=== PATIENT | male | born 1955 | race Caucasian/White ===

== ENCOUNTER 2016-09-16 09:02 | Emergency (ER) | payer OTHER ==
[~2016-09-16] VITALS: Ht 162.6 cm; Wt 77.1 kg
[~2016-09-16 09:02] MED LIST: AMLODIPINE-BENAZEPRI PO; ATORVASTATIN CA40 MG PO; GOOD SENSE ASPI81 M1 PO; METAMUCIL1 PAC PO; NASACORT A55 MCG/Act NASB; PREDNISONE50 MG PO; PROAIR HFA0.09 MG/Ac PO; TOPROL XL25 MG PO
[2016-09-16 09:05] VITALS: BP 178/98
--- NOTE | 2016-09-16 09:22 | ED GI/GU/ABDOMINAL COMPLAINT ---
History of Present Illness General Chief Complaint: Male Genitourinary Problems Stated Complaint: "RASH TO GENTIALS" Source: patient Exam Limitations: no limitations Vital Signs & Intake/Output Vital Signs & Intake/Output Vital Signs Date Time Temp Pulse Resp B/P B/P Pulse O2 O2 Flow FiO2 Mean Ox Delivery Rate 09/16 904 98.5 87 14 178/98 97 Room Air Allergies Coded Allergies: NO KNOWN ALLERGIES (06/16/13) Reconcile Medications Albuterol Sulfate (Proair Hfa) 0.09 MG/Actuation EMILY 2 PUFF PO 4 TIMES/DAY PRN WHEEZING [AMLODIPINE-BENAZEPRI] 1 TAB PO DAILY HTN (Reported) Aspirin 81 MG TAB.CHEW 1 TAB PO DAILY HEART HEALTH (Reported) Atorvastatin Calcium (Lipitor) 40 MG TABLET 1 TAB PO DAILY CHOLESTEROL ( Reported) Clindamycin HCl (Cleocin HCl) 300 MG CAPSULE 1 CAP PO TID BALANITIS TAKE 300 MG TID for 7 days Metoprolol Succinate (Toprol XL) [address] 1 TAB PO DAILY HTN (Reported) Prednisone 50 MG TABLET 1 TAB PO QDAY PRN SEVERE ALLERGIC RHINITIS Prednisone 20 MG TABLET 40 MG PO DAILY POISION SASHA Take 40 mg daily on days 1-7 Take 20 mg daily on days 8-14 Psyllium Hydrophylic Muciloid (Metamucil Packet) 3.4 GM POWD.PACK 1 PAC PO DAILY CONSTIPATION (Reported) Triamcinolone Acetonide (Nasacort Aq) 55 MCG/Actuation SPR 1 INH NASB BID ALLERGIC RHINITIS Triage Note: 60 Y/O MALE C/O ITCHY RASH TO GENTIALS X 2-3 DAYS. HAS POISON SASHA BUT DOESNT THINK RASH IS FROM THAT. REQUESTING MALE PROVIDER IF AVAILABLE. Triage Nurses Notes Reviewed? yes HPI: 60 yo M PMH HTN presenting with rash. Rash to bilateral forearms for the last 4- 5 days, vesicular, pruritic, patient was working outside, had contact with poision Sasha, other individuals working in area with similar lesions. 2-3 days ago developed similar lesion on right side of penile shaft, pruritic, no purulen drainage, spreading erythema and swelling since that time, minimal pain. Denies fevers, chills, chest pain, SOB, abdominal Sx, urinary Sx, penile discharge. (ALEX ORDOÑEZ,JOSE ANTONIO) Past History Travel History Traveled to [place] past 21 day No Medical History Any Pertinent Medical History? 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 Yes (JOSE ANTONIO JOHNSON MD) Review of Systems Review of Systems Constitutional: Reports: no symptoms. EENTM: Reports: no symptoms. Respiratory: Reports: no symptoms. Cardiovascular: Reports: no symptoms. GI: Reports: no symptoms. Genitourinary: Reports: see HPI. Denies: dysuria, frequency, hematuria, pain, urgency. Musculoskeletal: Reports: no symptoms. Skin: Reports: see HPI, lesions. Neurological/Psychological: Reports: no symptoms. Hematologic/Endocrine: Reports: no symptoms. Immunologic/Allergic: Reports: no symptoms. All Other Systems: Reviewed and Negative (JOSE ANTONIO JOHNSON MD) Physical Exam Physical Exam General Appearance: well developed/nourished, no apparent distress, alert Head: normal appearance Neck: normal inspection, full range of motion Respiratory: normal breath sounds, no respiratory distress Cardiovascular: regular rate/rhythm, normal peripheral pulses Gastrointestinal: soft, non-tender Male Genitals: See Below Comments: Skin: Mildly erythematous vesicular lesions to bilateral volar forearms : 1-2 cm linear vesicular erythematous lesion to right lateral penile shaft with associated edema, erythema/edema of right lateral scrotum and distal penile shaft/head/foreskin, foreskin easily retractible without pain, no lesions at urethral meatus Core Measures ACS in differential dx? No Severe Sepsis Present: No Septic Shock Present: No (JOSE ANTONIO JOHNSON MD) Progress Differential Diagnosis: STI, Poision sasha, balanitis Plan of Care: Current Medications Sig/Laura Start time Last Medication Dose Stop Time Status Admin Clindamycin 300 MG ONCE ONE 09/16 999 UNVr (Cleocin 150MG Cap) 09/16 1001 Prednisone 40 MG ONCE ONE 09/16 999 UNVr 09/16 1001 Physician MDM: 60 yo M presenting with skin lesions, penile lesion and swelling. VSS, afebrile, exam as above. DDx: Poision Sasha, Balanitis, Cellulitis, less likely HSV or other STI, low concern for necrotiizing fascitis. Given probable poision sasha with genital involvement, will treat with 14 day steroid taper, 40 mg prednisone given in ED. Given significant erythema/edema probable associated cellulitis/balanitis, we'll treat with clindamycin, first dose given in ED. Given patient well-appearing in stable with low concern for paraphimosis or necrotizing fasciitis, discharged with strict return precautions, prednisone taper, clindamycin prescription, plan to follow-up with PMD in the next 2-3 days for further evaluation. The plan of care was discussed with the patient who expressed agreement and understanding. (ALEX ORDOÑEZ,JOSE ANTONIO) Initial ED EKG: none (ALEX ORDOÑEZ,JOSE ANTONIO) Departure Departure Disposition: HOME OR SELF CARE Condition: Stable Clinical Impression Primary Impression: Poison sasha Secondary Impressions: Balanitis Referrals: Min ORELLANA MD (PCP/Family) Additional Instructions: Take prednisone 40 mg daily for days 1-7, then take prednisone 20 mg daily for days 8-14. Take clindamycin 3 times daily for 7 days. Follow up with a primary care physician in the next 2-3 days. Return to the ED for any new, worsening, or concerning symptoms. Departure Forms: Customer Survey General Discharge Information Prescriptions: Current Visit Scripts Prednisone 40 MG PO DAILY #28 TAB Take 40 mg daily on days 1-7 Take 20 mg daily on days 8-14 Clindamycin HCl (Cleocin HCl) 1 CAP PO TID #21 CAP TAKE 300 MG TID for 7 days (JOSE ANTONIO JOHNSON MD) PA/MAT PACKER Co-Sign Statement Statement: ED Attending supervision documentation- [] I saw and evaluated the patient. I have also reviewed all the pertinent lab results and diagnostic results. I agree with the findings and the plan of care as documented in the PA's/MAT PACKER's documentation. [x I have reviewed the ED Record and agree with the PA's/MAT PACKER's documentation. [] Additions or exceptions (if any) to the PAs/MAT PACKER's note and plan are summarized below: [] (BARBARA VILLALOBOS DO
[2016-09-16] MEDS ORDERED: PREDNISONE20 M1 PO (09:48)
[2016-09-16] MEDS ORDERED: CLEOCIN HCL300 M1 PO (09:48)
== END 2016-09-16 10:09 ==
LOC: ERH 09:02
DX: L23.7 Allergic contact dermatitis due to plants, except food (principal); N48.1 Balanitis

== ENCOUNTER 2017-06-07 09:36 | Emergency (ER) | payer OTHER ==
[~2017-06-07] VITALS: Ht 162.6 cm; Wt 77.1 kg
[~2017-06-07 09:36] MED LIST changes: +ASPIRIN81 M4 PO; +CLEOCIN HCL300 M1 PO; -GOOD SENSE ASPI81 M1 PO; +PREDNISONE20 M1 PO
--- NOTE | 2017-06-07 11:21 | ED GI/GU/ABDOMINAL COMPLAINT ---
History of Present Illness General Chief Complaint: Abdominal Pain/Flank Pain Stated Complaint: BIBA ABD PAIN Source: patient Exam Limitations: no limitations Vital Signs & Intake/Output Vital Signs & Intake/Output Vital Signs Date Time Temp Pulse Resp B/P B/P Pulse O2 O2 Flow FiO2 Mean Ox Delivery Rate 06/07 1634 99.0 99 18 148/80 96 Room Air 06/07 1445 99.5 74 18 160/68 97 Room Air 06/07 1140 98.6 90 18 139/72 97 Room Air 06/07 0943 97.1 88 18 139/77 98 Room Air Allergies Coded Allergies: NO KNOWN ALLERGIES (06/16/13) Reconcile Medications Amlodipine Besylate/Benazepril (Amlodipine-Benazepril 5-10 MG) 5 MG-10 MG CAPSULE 1 CAP PO DAILY HEART (Reported) Aspirin (Aspirin*) 81 MG TAB.CHEW 1 TAB PO DAILY HEART HEALTH (Reported) Metoprolol Succinate 25 MG TAB 1 TAB PO DAILY HEART (Reported) Ondansetron (Zofran Odt) 4 MG TAB.RAPDIS 1 TAB SL TID nausea Oxycodone HCl/Acetaminophen (Percocet 5-325 MG Tablet) 5 MG-325 MG TABLET 1-2 TAB PO BID pain Triage Note: PT STATES THAT HE WOKE UP AT 2 AM WITH MID ABD PAIN THAT STARTED TO INCREASE, STATES THAT PAIN WAS 10/10 AND CONSTANT AND STARTED MID EPIGASTRIC AND THEN MOVED INTO DIFFUSE ABD AND FELT" LIKE IT EXPLODED LIKE A SPARKLER AND NOW PAIN FEELS BETTER". PT STATES THAT HE WAS SOB AT THE TIME , PALE SWEATING . PER EMS PT DROVE INTO THERE DRIVEWAY BEEPING HIS HORN, THEY STATED THAT PT WAS PALE, AND SWEATY. PT TOLD THEM THAT HE WAS HAVING SEVERE ABD PAIN AND NAUSEA. ON DRIVE HERE PT STARTED TO FEEL BETTER AND PAIN DECREASED TO NOTHING. PT STATES THAT HE DID HAVE A COUPLE OF EPISODES OF DIARHEA AT HOME. DENIES CP/SOB AT THIS TIME Triage Nurses Notes Reviewed? yes Onset: Abrupt Duration: getting worse, MONTHS Timing: recent history Quality/Severity: moderate, sharpness, stabbing Radiation: no radiation HPI: 61-year-old male has been experiencing abdominal pain issues for months comes in with worsening pain that occurred today. Patient reports that today the pain was epigastric and shot down to his lower abdomen. Sharp. Some associated dry heaving. Denies any changes in bowel movement. Denies any fever. Some mild associated shortness of breath. Patient reports he had previous surgery and has left UPJ but denies any other abdominal surgeries. He comes in now for further evaluation. Past History Travel History Traveled to [place] past 21 day No Medical History Any Pertinent Medical History? 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 No Review of Systems Review of Systems Constitutional: Reports: no symptoms. EENTM: Reports: no symptoms. Respiratory: Reports: no symptoms. Cardiovascular: Reports: no symptoms. GI: Reports: see HPI. Genitourinary: Reports: see HPI. Musculoskeletal: Reports: no symptoms. Skin: Reports: no symptoms. Neurological/Psychological: Reports: no symptoms. Hematologic/Endocrine: Reports: no symptoms. Immunologic/Allergic: Reports: no symptoms. All Other Systems: Reviewed and Negative Physical Exam Physical Exam General Appearance: well developed/nourished, alert Head: atraumatic, normal appearance Eyes: Bilateral: normal appearance, EOMI. Ears, Nose, Throat, Mouth: hearing grossly normal, moist mucous membrane Neck: normal inspection Respiratory: normal breath sounds, no respiratory distress Cardiovascular: regular rate/rhythm Gastrointestinal: soft, tenderness Back: normal inspection Extremities: normal range of motion Neurologic/Psych: awake, alert, oriented x 3, normal gait, normal mood/affect Skin: intact, normal color Core Measures ACS in differential dx? No Sepsis Present: No Sepsis Focused Exam Completed? No Progress Differential Diagnosis: AMI, appendicitis, bowel obstruction, cholecystitis, diverticulitis, gastritis, hepatitis, hernia, ischemic bowel, pancreatitis, peptic ulcer, PUD/GERD, perforated viscous, pyelonephritis, SBO, testicular torsion, ureterolithiasis, urinary retention, urethritis, UTI/pyelo Plan of Care: Orders Procedure Date/time Status Clear Liquid Diet 06/07 D Active TROPONIN LEVEL 06/07 1533 Complete EKG 06/07 1533 Active Add-on Test (ER Only) 06/07 1218 Active LIPASE 06/07 1138 Complete URINALYSIS 06/07 1120 Complete TROPONIN LEVEL 06/07 1120 Complete LACTIC ACID 06/07 1120 Complete COMPREHENSIVE METABOLIC PANEL 06/07 112 Complete CBC WITHOUT DIFFERENTIAL 06/07 112 Complete EKG 06/07 112 Active Laboratory Tests 06/07/17 1604: Troponin I < 0.01 06/07/17 1420: Lactic Acid Cancelled 06/07/17 1212: Urine Color YEL, Urine Clarity CLEAR, Urine pH 6.0, Ur Specific [place] 1.025, Urine Protein NEG, Urine Ketones 15 H, Urine Nitrite NEG, Urine Bilirubin NEG, Urine Urobilinogen 0.2, Ur Leukocyte Esterase NEG, Ur Microscopic EXAM NOT REQUIRED, Urine Hemoglobin NEG, Urine Glucose NEG 06/07/17 1138: Anion Gap 14, Estimated GFR > 60, BUN/Creatinine Ratio 22.5, Glucose 116 H, Lactic Acid 1.5, Calcium 9.9, Total Bilirubin 0.8, AST 21, ALT 36, Alkaline Phosphatase 53, Troponin I < 0.01, Total Protein 7.1, Albumin 4.4, Globulin 2.7, Albumin/Globulin Ratio 1.6, Lipase 73, CBC w Diff MAN DIFF ORDERED, RBC 5.41, MCV 86.7, MCH 29.9, MCHC 34.5, RDW 13.4, MPV 7.8, Gran % 86.7 H, Lymphocytes % 5.6 L, Monocytes % 7.7, Eosinophils % 0, Basophils % 0, Absolute Granulocytes 8.9 H, Segmented Neutrophils 71, Band Neutrophils 15 H, Absolute Lymphocytes 0.6 L, Lymphocytes 7 L, Monocytes 7, Absolute Monocytes 0.8 H, Absolute Eosinophils 0, Absolute Basophils 0, Platelet Estimate ADEQUATE, Normocytic RBCs VERIFIED, Normochromic RBCs VERIFIED, Fld Total RBCs Counted 100 Diagnostic Imaging: Viewed by Me: Radiology Read, CT Scan. Discussed w/RAD: Radiology Read, CT Scan. Radiology Impression: PATIENT: CARISSA LOPEZ PRESENT AGE: 61 PATIENT ACCOUNT NO: [id number] : 53 LOCATION: [facility] ORDERING PHYSICIAN: Aaron GODOY SERVICE DATE: 06/07/17 EXAM TYPE: CAT - CT ABD & PELVIS W IV CONTRAST EXAMINATION: CT ABDOMEN AND PELVIS WITH CONTRAST CLINICAL INFORMATION: Lower abdominal pain. COMPARISON: CT abdomen and pelvis 05/02/2014. TECHNIQUE: Multidetector volumetric imaging was performed of the abdomen and pelvis following IV administration of 95 mL of Optiray 320 intravenous contrast. Sagittal and coronal reformatted images were obtained on the technologist's workstation. DLP: 388 mGy-cm FINDINGS: LUNG BASES: The visualized lung bases are unremarkable. LIVER, GALLBLADDER, AND BILIARY TREE: The liver is normal in size, shape, and attenuation. No focal hepatic lesion or biliary ductal dilatation is present. The gallbladder is unremarkable with no evidence of radiopaque gallstones, gallbladder wall thickening, or obvious pericholecystic inflammatory changes. PANCREAS: Unremarkable. SPLEEN: Unremarkable. ADRENAL GLANDS: Unremarkable. KIDNEYS AND URETERS: Bilateral nephrograms are symmetric. There is asymmetric left-sided hydronephrosis with abrupt transition at the left ureteropelvic junction, unchanged from prior exam and likely representing a chronic UPJ obstruction. No suspicious renal lesion. No renal or ureteral calculi. BLADDER: Unremarkable. GASTROINTESTINAL TRACT: Bowel gas pattern is nonobstructive. There is borderline dilated small bowel in the midabdomen with suggestion of associated mesenteric edema and mild vessel honeycombing. No significant mural thickening of these bowel loops. No discrete transition point delineated. No evidence of acute colonic inflammation. The appendix is not discretely visualized. ABDOMINAL WALL: No significant hernia is appreciated. LYMPH NODES: Subcentimeter abdominal and pelvic lymph nodes without bulky adenopathy. VASCULAR: Scattered atherosclerotic calcification including coronary artery calcification. PELVIC VISCERA: No free pelvic fluid. Borderline prostatomegaly. Seminal vesicles are unremarkable. Vasectomy clips. OSSEOUS STRUCTURES: No acute osseous abnormalities. Multilevel degenerative changes of the spine, most conspicuous at L4-L5 with an inferior endplate L4 Schmorl's node. IMPRESSION: 1. Borderline distended small bowel loops (relatively long segment) in the central abdomen with suggestion of mild associated mesenteric edema and vessel honeycombing. No discrete transition point demonstrated. Findings are suspicious for local enteritis. No pneumoperitoneum. 2. No acute colonic pathology. 3. Unchanged left hydronephrosis extending from the ureteropelvic junction, suggesting chronic mild UPJ obstruction. DICTATED BY: Fortino Baez MD DATE/TIME DICTATED:06/07/171338 CASTING INSPECTOR:PAMELA DATE/TIME TRANSCRIBED:06/07/171338 CONFIDENTIAL, DO NOT COPY WITHOUT APPROPRIATE AUTHORIZATION. <Electronically signed in Other Vendor System> SIGNED BY: Fortino Baez MD 06/07/17 8344, PATIENT: CARISSA LOPEZ PRESENT AGE: 61 PATIENT ACCOUNT NO: [id number] : 53 LOCATION: [facility] ORDERING PHYSICIAN: Aaron GODOY SERVICE DATE: 06/07/17 EXAM TYPE : RAD - XRY-CHEST XRAY, TWO VIEWS EXAMINATION: XR CHEST CLINICAL INFORMATION: SOB. COMPARISON: Chest 12/12/2013 TECHNIQUE: 2 views of the chest were obtained. FINDINGS: Both lungs are fairly well-expanded and clear of acute process. The heart size and pulmonary vascularity is normal. No gross bony abnormality seen. IMPRESSION: Unremarkable chest examination. DICTATED BY: Peewee Diamond MD DATE/ TIME DICTATED:06/07/171347 CASTING INSPECTOR:PAMELA DATE/TIME TRANSCRIBED: 06/07/171347 CONFIDENTIAL, DO NOT COPY WITHOUT APPROPRIATE AUTHORIZATION. < Electronically signed in Other Vendor System> SIGNED BY: Peewee Diamond MD [id number] Initial ED EKG: normal sinus rhythm, rate Repeat EKG: unchanged Departure Departure Disposition: HOME OR SELF CARE Condition: Stable Clinical Impression Primary Impression: Abdominal pain Referrals: Patient Has No Primary Care Dr (PCP/Family) Additional Instructions: Return if any concerns worsening symptoms. Take Percocet and Zofran as prescribed. Follow-up with your primary care doctor. Please go over all results of today's visit with your primary care doctor. Contact your primary care doctor to let them know you were here in the emergency room. There may be nonspecific findings which may not be related to your visit today here in the emergency room but may require further evaluation and chronic monitoring by your primary care doctor. If you had a laceration today the chance of foreign body always remains. You should follow-up with your primary care doctor for recheck in 3-5 days for a wound check. If you had an x-ray done there is a chance that a fracture could have been missed on initial read and you should follow-up with your primary care doctor for repeat x-rays if symptoms persist. If your blood pressure was elevated here in the emergency room please have rechecked by hyour primary care doctor within the next 48. If you were prescribed a narcotic here in the emergency room or any type of controlled substances you're not allowed to drive while taking this medication or operate any type of heavy machinery. Narcotics can make you feel lightheaded dizziness nausea and can cause constipation. 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 Thank you for choosing [facility] emergency room. Please return to the emergency room immediately if you have any other concerns worsening of symptoms. Departure Forms: Customer Survey General Discharge Information Prescriptions: Current Visit Scripts Oxycodone HCl/Acetaminophen (Percocet 5-325 MG Tablet) 1-2 TAB PO BID #10 TAB Ondansetron (Zofran Odt) 1 TAB SL TID #10 TAB Comments 06/07/2017 6:11:31 PM After being reevaluated multiple times here in the emergency room he feels better. He is tolerating oral liquids. His abdominal pain feels significantly better. Results discussed with the patient. Second troponin negative. Patient was reevaluated at least 3 times here in the emergency room. He will follow-up with his PCP. Return if any other concerns. he Feels ready to be discharged.
[2017-06-07 11:46] LABS: ABSOLUTE BASOPHIL COUNT 0 /CUMM (0.0-0.2); ABSOLUTE EOSINOPHIL COUNT 0 /CUMM (0.0-0.7); ABSOLUTE GRANULOCYTE CT 8.9 /CUMM (1.4-6.5); ABSOLUTE LYMPH COUNT 0.6 /CUMM (1.2-3.4); ABSOLUTE MONOCYTE COUNT 0.8 /CUMM (0.10-0.60); BASOPHIL % 0 % (0.0-2.0); EOSINOPHIL % 0 % (0-5); HEMATOCRIT 46.9 % (42-52); MEAN CORPUSCULAR HGB 29.9 PG (27.0-31.0); MEAN CORPUSCULAR HGB CONC 34.5 G/DL (33.0-37.0); MEAN CORPUSCULAR VOLUME 86.7 FL (80.0-94.0); MEAN PLATELET VOLUME 7.8 FL (7.4-10.4); PLATELET COUNT 248 /CUMM (130-400); RBC DISTRIBUTION WIDTH 13.4 % (11.5-14.5); RED BLOOD CELL CT 5.41 /CUMM (4.70-6.10); WHITE BLOOD CELL COUNT 10.2 /CUMM (4.8-10.8)
[2017-06-07 11:47] LABS: GRANULOCYTE % 86.7 % (42.2-75.2)
[2017-06-07] MEDS ORDERED: AMLODIPINE-BEN1 EAC3 PO (11:53)
[2017-06-07] MEDS ORDERED: METOPROLOL SUCC25 M1 PO (11:53)
--- NOTE | 2017-06-07 13:53 | RADIOLOGY REPORT ---
EXAMINATION: XR CHEST CLINICAL INFORMATION: SOB. COMPARISON: Chest 12/12/2013 TECHNIQUE: 2 views of the chest were obtained. FINDINGS: Both lungs are fairly well-expanded and clear of acute process. The heart size and pulmonary vascularity is normal. No gross bony abnormality seen. IMPRESSION: Unremarkable chest examination.
--- NOTE | 2017-06-07 13:54 | CT SCAN REPORT ---
EXAMINATION: CT ABDOMEN AND PELVIS WITH CONTRAST CLINICAL INFORMATION: Lower abdominal pain. COMPARISON: CT abdomen and pelvis 05/02/2014. TECHNIQUE: Multidetector volumetric imaging was performed of the abdomen and pelvis following IV administration of 95 mL of Optiray 320 intravenous contrast. Sagittal and coronal reformatted images were obtained on the technologist's workstation. DLP: 388 mGy-cm FINDINGS: LUNG BASES: The visualized lung bases are unremarkable. LIVER, GALLBLADDER, AND BILIARY TREE: The liver is normal in size, shape, and attenuation. No focal hepatic lesion or biliary ductal dilatation is present. The gallbladder is unremarkable with no evidence of radiopaque gallstones, gallbladder wall thickening, or obvious pericholecystic inflammatory changes. PANCREAS: Unremarkable. SPLEEN: Unremarkable. ADRENAL GLANDS: Unremarkable. KIDNEYS AND URETERS: Bilateral nephrograms are symmetric. There is asymmetric left-sided hydronephrosis with abrupt transition at the left ureteropelvic junction, unchanged from prior exam and likely representing a chronic UPJ obstruction. No suspicious renal lesion. No renal or ureteral calculi. BLADDER: Unremarkable. GASTROINTESTINAL TRACT: Bowel gas pattern is nonobstructive. There is borderline dilated small bowel in the midabdomen with suggestion of associated mesenteric edema and mild vessel honeycombing. No significant mural thickening of these bowel loops. No discrete transition point delineated. No evidence of acute colonic inflammation. The appendix is not discretely visualized. ABDOMINAL WALL: No significant hernia is appreciated. LYMPH NODES: Subcentimeter abdominal and pelvic lymph nodes without bulky adenopathy. VASCULAR: Scattered atherosclerotic calcification including coronary artery calcification. PELVIC VISCERA: No free pelvic fluid. Borderline prostatomegaly. Seminal vesicles are unremarkable. Vasectomy clips. OSSEOUS STRUCTURES: No acute osseous abnormalities. Multilevel degenerative changes of the spine, most conspicuous at L4-L5 with an inferior endplate L4 Schmorl's node. IMPRESSION: 1. Borderline distended small bowel loops (relatively long segment) in the central abdomen with suggestion of mild associated mesenteric edema and vessel honeycombing. No discrete transition point demonstrated. Findings are suspicious for local enteritis. No pneumoperitoneum. 2. No acute colonic pathology. 3. Unchanged left hydronephrosis extending from the ureteropelvic junction, suggesting chronic mild UPJ obstruction.
[2017-06-07 16:34] VITALS: BP 148/80
[2017-06-07] MEDS ORDERED: ZOFRAN ODT4 M1 SL (17:46)
[2017-06-07] MEDS ORDERED: PERCOCET 5-3251 EACH PO (17:46)
== END 2017-06-07 17:59 ==
LOC: ERH 09:36
PROVIDERS: Physician Assistant Medical
DX: R10.9 Unspecified abdominal pain (principal)
CPT/HCPCS: 71046; 74177; 81003; 93005; 93010; 96374; 96375; J0131; J2405

== ENCOUNTER 2017-09-13 08:04 | Observation (INO) | payer OTHER ==
[~2017-09-13] VITALS: Ht 162.6 cm; Wt 70.3 kg
[~2017-09-13 08:04] MED LIST changes: +AMLODIPINE-BEN1 EAC3 PO; +METOPROLOL SUCC25 M1 PO; +PERCOCET 5-3251 EACH PO; +ZOFRAN ODT4 M1 SL
--- NOTE | 2017-09-13 08:31 | ED CARDIAC/CP/PALPITATIONS ---
History of Present Illness General Chief Complaint: Chest Pain Stated Complaint: CP Source: patient, family Exam Limitations: no limitations Vital Signs & Intake/Output Vital Signs & Intake/Output Vital Signs Date Time Temp Pulse Resp B/P B/P Pulse O2 O2 Flow FiO2 Mean Ox Delivery Rate 09/14 0646 97.8 73 20 150/92 20 Room Air 09/13 2142 97.9 69 20 168/98 97 Room Air 09/13 2124 70 168/98 09/13 1919 97.8 78 144/86 09/13 1523 98.0 76 16 150/84 99 Room Air 09/13 1403 97.8 78 18 144/86 98 Room Air 09/13 1123 97.6 64 18 154/92 99 Room Air 09/13 0942 68 16 160/94 96 Room Air 09/13 0842 Room Air ED Intake and Output 09/14 0000 09/13 1200 Intake Total 0 Output Total 0 Balance 0 Intake, Oral 0 Output, Urine 0 Patient 155 lb 170 lb Weight Weight Reported by Patient Measurement Method Allergies Coded Allergies: NO KNOWN ALLERGIES (06/16/13) Reconcile Medications Amlodipine Besylate/Benazepril (Amlodipine-Benazepril 5-10 MG) 5 MG-10 MG CAPSULE 1 CAP PO DAILY HEART (Reported) Aspirin (Aspirin*) 81 MG TAB.CHEW 1 TAB PO DAILY HEART HEALTH (Reported) Metoprolol Succinate 25 MG TAB 1 TAB PO DAILY HEART (Reported) Triage Note: PT C/O CHEST PRESSURE/PAIN SINCE LAST NIGHT ASSOCIATED WITH EXERTION. PT STATES ALSO SOB WITH PINS AND NEEDLES DOWN THE BACK OF HIS HEAD AND PRESSURE INSIDE OF BOTH ARMS. HX OF PR 13 YEARS AGO WITH STENT Triage Nurses Notes Reviewed? yes Onset: Gradual Duration: minute(s): Timing: yesterday Quality/Severity: mild, pressure Location: substernal Radiation: arms Activities at Onset: activity Aspirin Today: 81 mg x 1 HPI: 61yo male with hx of CAD s/p PR with 2 stents 13 years ago, HTN, hyperlipidemia presents to ED complaining of chest pressure yesterday while mowing the lawn. Patient states that he was doing yardwork and then began mowing the lawn when he had gradual onset of mild substernal chest pressure radiating towards both arms. Patient felt shortness of breath and presyncope at this time. Patient states that he sat down to rest and his symptoms gradually improved over a few minutes. He has had no further chest pain however was not able to continue any exertional activity due to fatigue. Patient reports exertional fatigue for the past several months however yesterday was his first occurrence of chest pressure. Patient states that his symptoms are similar to his previous PR 13 years ago. Patient sees fuel management handler, Dr. Quezada, twice a year. He takes ASA 81mg daily. Patient reports erectile dysfunction. He states that for the past 2 months he has discontinued blood pressure and cholesterol medications as he thought this was affecting his ED. patient reports intermittent numbness to bilateral palms. Patient denies syncope. (Rosie Currie) Past History Travel History Traveled to [place] past 21 day No Medical History Any Pertinent Medical History? 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 No (Rosie Currie) Review of Systems Review of Systems Constitutional: Reports: see HPI. EENTM: Reports: no symptoms. Respiratory: Reports: see HPI. Cardiovascular: Reports: see HPI. GI: Reports: no symptoms. Genitourinary: Reports: see HPI. Musculoskeletal: Reports: no symptoms. Skin: Reports: no symptoms. Neurological/Psychological: Reports: no symptoms. Hematologic/Endocrine: Reports: no symptoms. Immunologic/Allergic: Reports: no symptoms. All Other Systems: Reviewed and Negative (Rosie Currie) Physical Exam Physical Exam General Appearance: well developed/nourished, no apparent distress, alert, awake Head: atraumatic, normal appearance Eyes: Bilateral: normal appearance. Ears, Nose, Throat: hearing grossly normal Neck: normal inspection, supple, full range of motion Respiratory: normal breath sounds, chest non-tender, no respiratory distress, lungs clear Cardiovascular: regular rate/rhythm, normal peripheral pulses Peripheral Pulses: 2+ radial (R), 2+ radial (L) Gastrointestinal: normal bowel sounds, soft, non-tender, no organomegaly Back: normal inspection, normal range of motion Extremities: normal inspection, normal range of motion Neurologic/Psych: awake, alert, oriented x 3 Skin: intact, normal color, warm/dry Core Measures ACS in differential dx? Yes CVA/TIA Diagnosis No Sepsis Present: No Sepsis Focused Exam Completed? No (Samantha GODOY,Rosie Nguyen) Progress Differential Diagnosis: AMI, atrial fibrillation, CHF/pulm edema, costochondritis, musculoskeletal pain, myocarditis, pericarditis, pneumonia, pulmonary embolism, unstable angina, V-fib/V-Tach Plan of Care: Orders Procedure Date/time Status Nothing by Mouth 09/14 B Active Heart Healthy Diet 09/13 D Complete ECHOCARDIOGRAM 09/13 2159 Active TROPONIN LEVEL 09/13 1800 Complete EKG 09/13 1800 Active Vital Signs 09/13 1602 Active Teach/Educate 09/13 1602 Active Pain Treatment and Response 09/13 1602 Active Nutritional Intake, Monitor 09/13 1602 Active Isolation 09/13 1602 Active Intake & Output 09/13 1602 Active Patient Care Conference 09/13 1602 Active Activity/Ambulation 09/13 1602 Active Pathway - chart 09/13 1536 Active House Staff 09/13 1536 Active Code Status 09/13 1536 Active Patient Data 09/[address] in observation 09/13 1240 Active ED Holding Orders 09/13 1217 Active Code Status 09/13 1217 Complete TROPONIN LEVEL 09/13 1130 Complete EKG 09/13 1130 Active Add-on Test (ER Only) 09/13 0850 Active Intake & Output 09/13 0838 Active PARTIAL THROMBOPLASTIN TIME 09/13 0829 Complete PROTHROMBIN TIME 09/13 0829 Complete Current Medications Sig/Laura Start time Last Medication Dose Stop Time Status Admin Amlodipine Besylate 5 MG DAILY 09/14 899 AC (Norvasc) Aspirin 81 MG DAILY 09/14 899 AC (Aspirin) Enoxaparin Sodium 40 MG DAILY 09/14 899 AC (Lovenox) Metoprolol Tartrate 12.5 MG BID 09/13 2100 AC 09/13 (Lopressor) 2124 Lisinopril 10 MG DAILY 09/13 1535 AC 09/13 (Prinivil) 1919 Laboratory Tests 09/13/17 1755: Troponin I 0.06 09/13/17 1203: Troponin I 0.09 Awaiting cardiology page. Patient's blood pressure has been reduced reasonably without need for antihypertensives here in the emergency department. He has no active chest pain at this time. Initial troponin enzyme is within normal limits, EKG is stable. Spoke with Dr. Hdez regarding this patient, he agrees with the plan for hospital stay, he believes the patient will require a stress test while here. Case managment/Dr. Syed recommend observation. Dr. Rodas with Dr. Tellez regarding this patient's telemetry observation. Diagnostic Imaging: Viewed by Me: Radiology Read. Discussed w/RAD: Radiology Read. Radiology Impression: PATIENT: CARISSA LOPEZ PRESENT AGE: 61 PATIENT ACCOUNT NO: [id number] : 53 LOCATION: [facility] ORDERING PHYSICIAN: Rosie GODOY SERVICE DATE: 09/13/17 EXAM TYPE: RAD - XRY-CHEST XRAY, TWO VIEWS EXAMINATION: XR CHEST CLINICAL INFORMATION: Chest pain. COMPARISON: Prior chest radiographs dated 06/07/2017 and 12/12/2013. TECHNIQUE: Frontal and lateral views of the chest were obtained. FINDINGS: The heart, great vessels, pulmonary vasculature and mediastinum are normal. The lungs show no focal infiltrate, effusion or pneumothorax. There is no acute osseous abnormality. An ovoid radiopaque foreign body is again seen in the upper right thoracic soft tissues. IMPRESSION: No active cardiopulmonary disease. DICTATED BY: Adonay Ibanez MD DATE/TIME DICTATED:09/13/17912 TAX COMPLIANCE AGENT: PAMELA DATE/TIME TRANSCRIBED:09/13/17912 CONFIDENTIAL, DO NOT COPY WITHOUT APPROPRIATE AUTHORIZATION. <Electronically signed in Other Vendor System> SIGNED BY: Adonay Ibanez MD 09/13/17917 Initial ED EKG: sinus rhythm @67bpm, incomplete RBBB, LVH, nonspecific ST changes Prior EKG: unchanged (06/07/17) (Samantha GODOY,Rosie Nguyen) Departure Departure Disposition: STILL A PATIENT Condition: Stable Clinical Impression Primary Impression: Chest pain Qualifiers: Chest pain type: unspecified Qualified Code: R07.9 - Chest pain, unspecified Referrals: Patient Has No Primary Care Dr (PCP/Family) Departure Forms: Customer Survey General Discharge Information Observation Note Spoke With: Cirilo Tellez MD Physician Advisor Notified: DANIAL ORDOÑEZ,ERASMO Ortiz Place Patient In: Non-ED OBS Care Area Rationale for Observation: My rational for observation is as follows [patient with exertional chest pain and significant caridac history requiring telemetry monitoring, cardiology consult, repeat EKGs, repeat troponins, stress test, premature discharge medically unsafe]. (Samantha GODOY,Rosie Nguyen) Departure Time of Disposition: 1243 PA/TYPESETTING MACHINE OPERATOR/TENDER Co-Sign Statement Statement: ED Attending supervision documentation- [] I saw and evaluated the patient. I have also reviewed all the pertinent lab results and diagnostic results. I agree with the findings and the plan of care as documented in the PA's/TYPESETTING MACHINE OPERATOR/TENDER's documentation. [X] I have reviewed the ED Record and agree with the PA's/TYPESETTING MACHINE OPERATOR/TENDER's documentation. [] Additions or exceptions (if any) to the PAs/TYPESETTING MACHINE OPERATOR/TENDER's note and plan are summarized below: [] (Henri Rodas DO) Critical Care Note Critical Care Note Critical Care Time: non-applicable (Rosie Currie)
[2017-09-13 08:37] LABS: ABSOLUTE BASOPHIL COUNT 0 /CUMM (0.0-0.2); ABSOLUTE EOSINOPHIL COUNT 0.3 /CUMM (0.0-0.7); ABSOLUTE GRANULOCYTE CT 2.8 /CUMM (1.4-6.5); ABSOLUTE LYMPH COUNT 1.9 /CUMM (1.2-3.4); ABSOLUTE MONOCYTE COUNT 0.5 /CUMM (0.10-0.60); BASOPHIL % 0.7 % (0.0-2.0); EOSINOPHIL % 6.2 % (0-5); GRANULOCYTE % 50.7 % (42.2-75.2); HEMATOCRIT 47.4 % (42-52); MEAN CORPUSCULAR HGB CONC 34.3 G/DL (33.0-37.0); MEAN CORPUSCULAR VOLUME 87.4 FL (80.0-94.0); MEAN PLATELET VOLUME 7.7 FL (7.4-10.4); PLATELET COUNT 237 /CUMM (130-400); RBC DISTRIBUTION WIDTH 13.4 % (11.5-14.5); RED BLOOD CELL CT 5.42 /CUMM (4.70-6.10); WHITE BLOOD CELL COUNT 5.6 /CUMM (4.8-10.8)
[2017-09-13 09:09] LABS: PTT 35 SEC (25-37)
--- NOTE | 2017-09-13 09:18 | RADIOLOGY REPORT ---
EXAMINATION: XR CHEST CLINICAL INFORMATION: Chest pain. COMPARISON: Prior chest radiographs dated 06/07/2017 and 12/12/2013. TECHNIQUE: Frontal and lateral views of the chest were obtained. FINDINGS: The heart, great vessels, pulmonary vasculature and mediastinum are normal. The lungs show no focal infiltrate, effusion or pneumothorax. There is no acute osseous abnormality. An ovoid radiopaque foreign body is again seen in the upper right thoracic soft tissues. IMPRESSION: No active cardiopulmonary disease.
--- NOTE | 2017-09-13 13:01 | History & Physical ---
General Information and HPI MD Statement: I have seen and personally examined CARISSA LOPEZ and documented this H&P. The patient is a 61 year old M who presented with a patient stated chief complaint of [chest discomfort]. Exam Limitations: no limitations History of Present Illness: Mr. Lopez is a 61 yo male with hx of CAD s/p 2 stents in 2005 (follows up with Dr. Quezada), HTN, HLD. He presents to the ER with complaints of chest discomfort/ pressure radiating down his arms. He states the pain was similar to his previous VA 12 years ago. On further questioning, he states his pain was exertional, while doing yard work. He had a similar pain yesterday around lunchtime after a long hard day of yardwork. He rested and the pain resolved. This morning, the pain started almost immediately with minimal yardwork. Similar to his discomfort yesterday, radiating down the arms. He did have some associated dyspnea. He had no associated diaphoresis, nausea, vomiting, lightheadedness, dizziness. Of note, he states that he stopped taking his medications approximately 2 months ago as he thought they were causing some problems with obtaining/maintaining erections. 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 Former smoker, quit smoking 15 years (1PPD since 12yo). No illicit drug use. He had a f/u apt scheduled with Dr. Quezada in October 2017. Per the pt, he has had an exercise stress test in the summer of of 2015, which he passed he states. Vital signs admission temperature 97.8, pulse rate 77, respiratory rate 20, blood pressure 177/95 saturating 98% on room air. Blood pressure did come down to 1 4486 without any medications. CBC unremarkable, BEP unremarkable, with glucose 125. Troponin 0.092. Chest x-ray showed no acute pathology. Medications at home include amlodipine/benazepril 5/10 mg daily, metoprolol XL 25 mg daily, aspirin 81 mg daily Cialis 10 mg as needed. As noted though, he has held his meds except ASA. Allergies/Medications Allergies: Coded Allergies: NO KNOWN ALLERGIES (06/16/13) Home Med list Amlodipine Besylate/Benazepril (Amlodipine-Benazepril 5-10 MG) 5 MG-10 MG CAPSULE 1 CAP PO DAILY HEART (Reported) Aspirin (Aspirin*) 81 MG TAB.CHEW 1 TAB PO DAILY HEART HEALTH (Reported) Metoprolol Succinate 25 MG TAB 1 TAB PO DAILY HEART (Reported) Past History Travel History Traveled to [place] past 21 day No Medical History Neurological: NONE EENT: NONE Cardiovascular: hypertension, hyperlipidemia, history of an VA in 2004 Respiratory: NONE Gastrointestinal: NONE Hepatic: NONE Renal: NONE Musculoskeletal: NONE Psychiatric: NONE Endocrine: NONE Blood Disorders: NONE Cancer(s): NONE 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 Ambulation: independent IADLs Independent: shopping, housework, finances, food prep, telephone, transportation , medication admin. Review of Systems Review of Systems Constitutional: Reports: see HPI. Exam & Diagnostic Data Last 24 Hrs of Vital Signs/I&O Vital Signs Date Time Temp Pulse Resp B/P B/P Pulse O2 O2 Flow FiO2 Mean Ox Delivery Rate 09/13 1403 97.8 78 18 144/86 98 Room Air 09/13 1123 97.6 64 18 154/92 99 Room Air / 0942 68 16 160/94 96 Room Air 06/05 0842 Room Air 06/05 0837 97.6 80 16 180/96 98 Room Air /05 0815 97.8 77 20 177/95 98 Room Air Intake & Output / 1600 06/05 0800 06 0000 Intake Total 0 Output Total 0 Balance 0 Intake, Oral 0 Output, Urine 0 Patient 77.111 kg Weight Weight Reported by Patient Measurement Method Physical Exam General Appearance Alert, Oriented X3, Cooperative, No Acute Distress Skin No Rashes Skin Temp/Moisture Exam: Warm/Dry HEENT Atraumatic, EOMI Neck Supple, No JVD Cardiovascular Regular Rate, Normal S1, Normal S2 Lungs Clear to Auscultation, Normal Air Movement Abdomen Soft, No Tenderness Extremities Normal Pulses, No Tenderness/Swelling Last 24 Hrs of Labs/Jose Alfredo: Laboratory Tests 09/13/17 1203: Troponin I 0.09 09/13/17 0829: Anion Gap 11, Estimated GFR > 60, BUN/Creatinine Ratio 20.0, Glucose 125 H, Calcium 10.1, Total Bilirubin 0.8, AST 30, ALT 38, Alkaline Phosphatase 53, Troponin I 0.09, Total Protein 7.2, Albumin 4.2, Globulin 3.0, Albumin/Globulin Ratio 1.4, PT 11.0, INR 1.01, APTT 35, CBC w Diff NO MAN DIFF REQ, RBC 5.42, MCV 87.4, MCH 30.0, MCHC 34.3, RDW 13.4, MPV 7.7, Gran % 50.7, Lymphocytes % 33.7, Monocytes % 8.7, Eosinophils % 6.2 H, Basophils % 0.7, Absolute Granulocytes 2.8, Absolute Lymphocytes 1.9, Absolute Monocytes 0.5, Absolute Eosinophils 0.3, Absolute Basophils 0 Diagnostic Data EKG Results SR at 64 with LAD @ -30 degrees. TWI in III and aVF Unchanged from previous EKG CXR Results no acute pathology Assessment/Plan Assessment: Mr. Lopez is a 61 yo male with hx of CAD s/p 2 stents in 2005 (follows up with Dr. Quezada), HTN, HLD. He presents to the ER with complaints of chest discomfort/ pressure radiating down his arms. He states the pain was similar to his previous VA 12 years ago. Vital signs admission temperature 97.8, pulse rate 77, respiratory rate 20, blood pressure 177/95 saturating 98% on room air. Blood pressure did come down to 1 4486 without any medications. CBC unremarkable, allegedly panel unremarkable, with glucose 125. Troponin 0.09 Chest x-ray showed no acute pathology. Problem List/Assessment and Plan Chest pain * The patient has a strong story for stable angina. * We will place the patient on telemetry for observation. * He has 2 negative sets of troponin and no evolving EKG findings. * We will evaluate with one more set of troponin and EKG. * Additionally, we will also restart his cardioprotective medications [beta patty, LAKIA inhibitor, and continue aspirin]. * I spoke with Dr. Quezada to update him on the patients admission. The patient has had a negative work-up in 2016 with exercise stress test, but given his recent acute exertional symptoms, he may require further stratification with a coronary angiogram. * We will obtain an echo for the am, and keep the patient NPo for possible cardiac cath and PCI in the am. Hold off on loading him with DAPT now as he may have diffuse diseaes and require CABG evaluation. DNR/DNI [reviewed with the patient] Heart healthy diet Lovenox for DVT prophylaxis Pain pathway as ordered As Ranked By This Provider Problem List: 1. Chest pain Qualifiers Chest pain type: unspecified Qualified Code: R07.9 - Chest pain, unspecified Core Measures/Misc (12/26) Acute Coronary Syndrome ACS Diagnosis: No Congestive Heart Failure Congestive Heart Failure Diagnosis No Cerebrovascular Accident CVA/TIA Diagnosis: No VTE (View Protocol) VTE Risk Factors Age>40 No Mechanical VTE Prophylaxis d/t Early Ambulation No VTE Pharm Prophylaxis d/t NA PharmProphylax ordered Sepsis (View protocol) Sepsis Present: No If YES complete Sepsis Event Note If YES complete Sepsis Event Note
[2017-09-13 15:23] VITALS: BP 150/84
[2017-09-13 21:42] VITALS: BP 168/98
[2017-09-14 06:46] VITALS: BP 150/92
--- NOTE | 2017-09-14 07:32 | PN- Housestaff ---
See Addendum Subjective Follow-up For: Chest pain Tele-Events Since Last Visit: Normal sinus rhythm, 7090s Subjective: Patient was admitted yesterday. He continues to have some mild chest pressure but not severe pain like he had yesterday when doing yard work. He did have shortness of breath yesterday but that has resolved. He also complains of some nausea and abdominal pain that seems chronic. No dysuria, vomiting, or diarrhea. Review of Systems Constitutional: Reports: no symptoms. EENTM: Reports: no symptoms. Cardiovascular: Reports: see HPI. Respiratory: Reports: see HPI. Gastrointestinal: Reports: see HPI. Genitourinary: Reports: no symptoms. Musculoskeletal: Reports: no symptoms. Skin: Reports: no symptoms. Neurological/Psychological: Reports: no symptoms. Hematologic/Endocrine: Reports: no symptoms. Immunologic/Allergic: Reports: no symptoms. Objective Last 24 Hrs of Vital Signs/I&O Vital Signs Date Time Temp Pulse Resp B/P B/P Pulse O2 O2 Flow FiO2 Mean Ox Delivery Rate 09/14 0646 97.8 73 20 150/92 20 Room Air 06/ 2142 97.9 69 20 168/98 97 Room Air 06/ 2124 70 168/98 06/ 1919 97.8 78 144/86 06/05 1523 98.0 76 16 150/84 99 Room Air 06/05 1403 97.8 78 18 144/86 98 Room Air 06/05 1123 97.6 64 18 154/92 99 Room Air 06/05 0942 68 16 160/94 96 Room Air / 0842 Room Air / 0837 97.6 80 16 180/96 98 Room Air 06/05 0815 97.8 77 20 177/95 98 Room Air Intake & Output 09/14 0800 06/06 0000 /05 1600 Intake Total 0 Output Total 0 Balance 0 Intake, Oral 0 Output, Urine 0 Patient 70.307 kg Weight Weight Reported by Patient Measurement Method Physical Exam General Appearance: Alert, Oriented X3, Cooperative, No Acute Distress HEENT: L iris irregular Cardiovascular: Regular Rate, Normal S1, Normal S2 Lungs: Clear to Auscultation Abdomen: Normal Bowel Sounds, Soft, No Tenderness Extremities: No Edema, Normal Pulses, No Tenderness/Swelling Current Medications: Current Medications Sig/Laura Start time Last Medication Dose Route Stop Time Status Admin Acetaminophen 325 MG Q6P PRN 09/13 1545 AC PO Amlodipine Besylate 5 MG DAILY 09/14 899 AC PO Aspirin 81 MG DAILY 09/14 899 AC PO Aspirin 0 .STK-MED ONE 09/13 944 DC PO Aspirin 243 MG ONCE ONE 09/13 899 DC 09/13 PO 09/13 09 0937 Enoxaparin Sodium 40 MG DAILY 09/14 899 AC SC Ibuprofen 400 MG Q6P PRN 09/13 1545 AC PO Lisinopril 10 MG DAILY 09/13 1535 AC 09/13 PO 1919 Metoprolol Succinate 25 MG DAILY 09/13 1534 DC 09/13 PO 1920 Metoprolol Tartrate 12.5 MG BID 09/13 2100 AC 09/13 PO 2124 Last 24 Hrs of Lab/Jose Alfredo Results Last 24 Hrs of Labs/Mics: Laboratory Tests 09/13/17 1755: Troponin I 0.06 09/13/17 1203: Troponin I 0.09 09/13/17 0829: Anion Gap 11, Estimated GFR > 60, BUN/Creatinine Ratio 20.0, Glucose 125 H, Calcium 10.1, Total Bilirubin 0.8, AST 30, ALT 38, Alkaline Phosphatase 53, Troponin I 0.09, Total Protein 7.2, Albumin 4.2, Globulin 3.0, Albumin/Globulin Ratio 1.4, PT 11.0, INR 1.01, APTT 35, CBC w Diff NO MAN DIFF REQ, RBC 5.42, MCV 87.4, MCH 30.0, MCHC 34.3, RDW 13.4, MPV 7.7, Gran % 50.7, Lymphocytes % 33.7, Monocytes % 8.7, Eosinophils % 6.2 H, Basophils % 0.7, Absolute Granulocytes 2.8, Absolute Lymphocytes 1.9, Absolute Monocytes 0.5, Absolute Eosinophils 0.3, Absolute Basophils 0 Assessment/Plan Assessment: Mr. Madrigal is a 61 yo male with hx of CAD s/p 2 stents in 2005 (follows up with Dr. Quezada), HTN, HLD who presented with complaints of chest discomfort/pressure radiating down his arms. Problem list: 1. Stable angina #Stable angina: Patient presented with chest pain and history of coronary artery disease status post 2 stents in 2005. His chest pain has resolved with rest. EKG and troponins 3 have been negative. Will talk to cardiology about doing a possible stress test or catheterization today. -N.p.o. pending cardiology recommendations -Telemetry monitoring -Continue aspirin #Chronic medical problems: -Continue other medications DVT prophylaxis with enoxaparin N.p.o. DNR/DNI Problem List: 1. Stable angina Pain Ratin Pain Location: no Pain Goal: Remain pain free Pain Plan: see a/p Tomorrow's Labs & Rationales: no
--- NOTE | 2017-09-14 09:17 | Discharge Summary ---
Visit Information Visit Dates Admission Date: 09/13/17 Discharge Date: 09/14/2017 Hospital Course Course Attending Physician: Cirilo Tellez MD SERVICE DATE: 09/13/17 EXAM TYPE: RAD - XRY-CHEST XRAY, TWO VIEWS EXAMINATION: XR CHEST CLINICAL INFORMATION: Chest pain. COMPARISON: Prior chest radiographs dated 06/07/2017 and 12/12/2013. TECHNIQUE: Frontal and lateral views of the chest were obtained. FINDINGS: The heart, great vessels, pulmonary vasculature and mediastinum are normal. The lungs show no focal infiltrate, effusion or pneumothorax. There is no acute osseous abnormality. An ovoid radiopaque foreign body is again seen in the upper right thoracic soft tissues. IMPRESSION: No active cardiopulmonary disease. DICTATED BY: Adonay Ibanez MD Primary Care Physician: Patient Has No Primary Care Dr Hospital Course: Mr. Madrigal is a 61 yo male with hx of CAD s/p 2 stents in 2005 (follows up with Dr. Quezada), HTN, HLD. He presented to the ER with complaints of chest discomfort/ pressure radiating down his arms. At the time of presentation the patient stated pain was similar to HI infarction which he had developed 12 years go. Vital signs admission temperature 97.8, pulse rate 77, respiratory rate 20, blood pressure 177/95 saturating 98% on room air. Blood pressure sequentially did come down to 144/86 without any medications. Lab studies at the time of presentation:WBC 5.6, H&H 16.2 and 47.4, platelets 237, sodium 142, potassium 4.0, BUN 16, creatinine 0.8. Glucose 125. Admission EKG showed sinus rhythm at 64 bpm with LAD at its -30. TWI in III and aVF Unchanged from previous EKG He was admitted to the telemetry service and monitored overnight. Below is a summary of the care he received under us. Serial troponin and EKGs were monitored. These remained within normal limits. Patient was also continued on his home medications of a beta patty, Amlodipine and an Aspirin. An LAKIA inhibitor was started. Patient received a cardiac consultation. The patient had a negative workup in 2015 with an exercise stress test. An echocardiogram was ordered. Patient was kept nothing by mouth for cardiac catheterization on 09/14/2017. Results of a chest x-ray which the patient had at the time of admission have been attached to this report. Patient was maintained on Lovenox for DVT prophylaxis. Patient was a DNR/DNI of course admission. Allergies: Coded Allergies: NO KNOWN ALLERGIES (06/16/13) Disposition Summary Disposition Principal Diagnosis: Chest pain suspicion for stable angina. Additional Diagnosis: Hyperglycemia. Discharge Disposition: other general hospital Discharge Instructions General Discharge Information Code Status: Full Code Patient's Diet: Heart Healthy Patient's Activity: As Tolerated Follow-Up Instructions/Appts: Please Follow-up with the primary care physician at the time of discharge. We have provided you with a referral. Please take medications prescribed. Please follow-up with a microarray operations vice president at the time of discharge. You will likely be given a referral once your procedures done. Medications at Discharge Discharge Medications: Continue taking these medications: Aspirin (Aspirin*) 81 MG TAB.CHEW 1 Tablet ORAL DAILY Amlodipine Besylate/Benazepril (Amlodipine-Benazepril 5-10 MG) 5 MG-10 MG CAPSULE 1 Capsule ORAL DAILY Qty = 90 Metoprolol Succinate (Metoprolol Succinate) 25 MG TAB 1 Tablet ORAL DAILY Qty = 90 Start taking the following new medications: Lisinopril (Lisinopril) 10 MG TABLET 10 Milligram ORAL DAILY Qty = 30 No Refills Copies To: Annamaria ORDOÑEZ,Annamaria; Min Quezada MD
[2017-09-14 09:50] VITALS: BP 150/92
[2017-09-14] MEDS ORDERED: LISINOPRIL10 M1 PO (10:26)
--- NOTE | 2017-09-14 10:27 | Patient Discharge Instructions ---
Discharge Instructions General Discharge Information You were seen/treated for: Chest pain Watch for these problems: Chest pain, shortness of breath Special Instructions: Transfer to other hospital for catheterization. Diet Continue normal diet: No Activity Full Activity/No Limits: Yes Acute Coronary Syndrome Inclusion Criteria At DC or during hospital stay patient has or had the following: ACS DIAGNOSIS No Discharge Core Measures Meds if any: Prescribed or Continued at Discharge Meds if any: NOT Prescribed or Continued at Discharge Congestive Heart Failure Inclusion Criteria At DC or during hospital stay patient has or had the following: CHF DIAGNOSIS No Discharge Core Measures Meds if any: Prescribed or Continued at Discharge Meds if any: NOT Prescribed or Continued at Discharge Cerebrovascular accident Inclusion Criteria At DC or during hospital stay patient has or had the following: CVA/TIA Diagnosis No Discharge Core Measures Meds if any: Prescribed or Continued at Discharge Meds if any: NOT Prescribed or Continued at Discharge Venous thromboembolism Inclusion Criteria VTE Diagnosis No VTE Type NONE VTE Confirmed by (Test) NONE Discharge Core Measures - Per Current guidelines, there needs to be overlap - treatment for the first 5 days of Warfarin therapy. - If discharged on Warfarin prior to 5 days of - overlap therapy, the patient will need to be - assessed for post discharge needs including - *Post discharge parental anticoagulation - *Warfarin and/or parental anticoagulation education - *Follow up date to check INR post discharge At least 5 days overlap therapy as Inpatient No Meds if any: Prescribed or Continued at Discharge Note: Overlap Therapy is Warfarin and Anticoagulant Meds if any: NOT Prescribed or Continued at Discharge
--- NOTE | 2017-09-14 19:54 | Cons- Cardiology ---
General Information and HPI Consulting Request Date of Consult: 09/14/17 Requested By: Cirilo Tellez MD Reason for Consult: new onset crescendo angina Source of Information: patient, old records Exam Limitations: no limitations History of Present Illness: the patient is a 61-year-old male who is well-known to me. He is 12 years post cardiac catheterization and stent placement in his ramus and diagonal branches. Stable since that time with no symptoms. Over the last several weeks he has had increasing episodes of activity limiting exertional angina relieved by rest. Since admission he has had no significant EKG changes or abnormalities in his blood work. Currently stable with no symptoms. No resting symptoms noted. Allergies/Medications Allergies: Coded Allergies: NO KNOWN ALLERGIES (06/16/13) Home Med List: Amlodipine Besylate/Benazepril (Amlodipine-Benazepril 5-10 MG) 5 MG-10 MG CAPSULE 1 CAP PO DAILY HEART (Reported) Aspirin (Aspirin*) 81 MG TAB.CHEW 1 TAB PO DAILY HEART HEALTH (Reported) Lisinopril 10 MG TABLET 10 MG PO DAILY BP Metoprolol Succinate 25 MG TAB 1 TAB PO DAILY HEART (Reported) Past History Travel History Traveled to [place] past 21 day No Medical History Neurological: NONE EENT: NONE Cardiovascular: hypertension, hyperlipidemia, history of an ID in 2004 Respiratory: NONE Gastrointestinal: NONE Hepatic: NONE Renal: NONE Musculoskeletal: NONE Psychiatric: NONE Endocrine: NONE Blood Disorders: NONE Cancer(s): NONE 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 Ambulation: independent IADLs Independent: shopping, housework, finances, food prep, telephone, transportation , medication admin. Exam & Diagnostic Data Vital Signs and I&O Vital Signs Date Time Temp Pulse Resp B/P B/P Pulse O2 O2 Flow FiO2 Mean Ox Delivery Rate 09/14 0950 73 150/92 09/14 0949 73 150/92 09/14 0646 97.8 73 20 150/92 20 Room Air 09/13 2142 97.9 69 20 168/98 97 Room Air 09/13 2124 70 168/98 Intake & Output 09/14 1600 09/14 0800 09/14 0000 09/13 1600 09/13 0800 09/13 0000 Intake Total 0 Output Total 0 Balance 0 Intake, Oral 0 Output, Urine 0 Patient 155 lb Weight Weight Reported by Patient Measurement Method Physical Exam: General Appearance Alert, Oriented X3, Cooperative, No Acute Distress Skin No Rashes Skin Temp/Moisture Exam: Warm/Dry HEENT Atraumatic, EOMI Neck Supple, No JVD Cardiovascular Regular Rate, Normal S1, Normal S2,, 1/6 systolic murmur Lungs Clear to Auscultation, Normal Air Movement Abdomen Soft, No Tenderness Extremities Normal Pulses, No Tenderness/Swelling Labs/Jose Alfredo Results: Laboratory Tests 09/13 09/13 09/13 1755 1203 0829 Chemistry Sodium (137 - 145 mmol/L) 142 Potassium (3.5 - 5.1 mmol/L) 4.0 Chloride (98 - 107 mmol/L) 104 Carbon Dioxide (22 - 30 mmol/L) 26 Anion Gap (5 - 16) 11 BUN (9 - 20 mg/dL) 16 Creatinine (0.7 - 1.2 mg/dL) 0.8 Estimated GFR (>60 ml/min) > 60 BUN/Creatinine Ratio (7 - 25 %) 20.0 Glucose (65 - 99 mg/dL) 125 H Calcium (8.4 - 10.2 mg/dL) 10.1 Total Bilirubin (0.2 - 1.3 mg/dL) 0.8 AST (17 - 59 U/L) 30 ALT (21 - 72 U/L) 38 Alkaline Phosphatase (< 127 U/L) 53 Troponin I (<0.11 ng/ml) 0.06 0.09 0.09 Total Protein (6.3 - 8.2 g/dL) 7.2 Albumin (3.5 - 5.0 g/dL) 4.2 Globulin (1.9 - 4.2 gm/dL) 3.0 Albumin/Globulin Ratio (1.1 - 2.2 %) 1.4 Coagulation PT (9.4 - 12.5 SEC) 11.0 INR (0.90 - 1.17) 1.01 APTT (25 - 37 SEC) 35 Hematology CBC w Diff NO MAN DIFF REQ WBC (4.8 - 10.8 /CUMM) 5.6 RBC (4.70 - 6.10 /CUMM) 5.42 Hgb (14.0 - 18.0 G/DL) 16.3 Hct (42 - 52 %) 47.4 MCV (80.0 - 94.0 FL) 87.4 MCH (27.0 - 31.0 PG) 30.0 MCHC (33.0 - 37.0 G/DL) 34.3 RDW (11.5 - 14.5 %) 13.4 Plt Count (130 - 400 /CUMM) 237 MPV (7.4 - 10.4 FL) 7.7 Gran % (42.2 - 75.2 %) 50.7 Lymphocytes % (20.5 - 51.1 %) 33.7 Monocytes % (1.7 - 9.3 %) 8.7 Eosinophils % (0 - 5 %) 6.2 H Basophils % (0.0 - 2.0 %) 0.7 Absolute Granulocytes (1.4 - 6.5 /CUMM) 2.8 Absolute Lymphocytes (1.2 - 3.4 /CUMM) 1.9 Absolute Monocytes (0.10 - 0.60 /CUMM) 0.5 Absolute Eosinophils (0.0 - 0.7 /CUMM) 0.3 Absolute Basophils (0.0 - 0.2 /CUMM) 0 Diagnostic Data EKG Results unchanged from prior outpatient EKG Assessment/Plan Assessment/Plan assessment: 1. Crescendo angina 2. Known coronary artery disease, status post multiple stents in 2005 3. Hyperlipidemia 4. Erectile dysfunction Recommendations: -Patient's history is clearly consistent with crescendo angina which has limited his activity significantly. -The patient's evaluation since admission and has been otherwise unremarkable. -Patient and I had an extended discussion about the appropriate management approach. After an extensive discussion we have agreed that he should undergo a cardiac catheterization to define his anatomy. -Cardiac catheterization will be performed at [facility] later today by Dr. Bowers.. -Follow-up with me post catheterization for further plans. -I also discussed again with the patient the importance of taking his home medications. He should not alter or change the medications without discussion with his physicians. Consult Acknowledgment - Thank you for your consult request.
== END 2017-09-14 11:30 | disposition short-term general hospital (02) ==
LOC: ERH 08:04 → ERHI 12:40 → ENRESERV 13:35 → ENTRNSPT 14:56 → EDTRNSPTSTS 15:11 → EDTRNSPT 15:11 → CMPTRNSPT 15:27 → 1NO 15:34 → ENPENDDIS 09-14 10:51 → 1NO 09-14 11:30
PROVIDERS: Physician Assistant
DX: I25.118 Atherosclerotic heart disease of native coronary artery with other forms of angina pectoris (principal); I10 Essential (primary) hypertension; Z95.5 Presence of coronary angioplasty implant and graft; E78.5 Hyperlipidemia, unspecified; I25.2 Old myocardial infarction; Z87.891 Personal history of nicotine dependence; N52.9 Male erectile dysfunction, unspecified; Z79.82 Long term (current) use of aspirin; R73.9 Hyperglycemia, unspecified
CPT/HCPCS: 6020; 36592; 71046; 93005; 93010; 96374; G0378; J0131; J1650; J3490